=== PATIENT | male | born 1990 | race Caucasian/White ===

== ENCOUNTER 2017-03-21 08:53 | Inpatient (IN) | payer OTHER ==
[2017-03-21 09:28] VITALS: BMI 25.8
--- NOTE | 2017-03-21 09:32 | PDOC ---
History of Present Illness - General History Source: Patient Exam Limitations: No Limitations - History of Present Illness Initial Comments: 03/21/17 13:44 The patient is a 26 year old male, with a significant past medical history of , depression, anxiety, ADHD, opiate addiction, heroin abuse who presents to the emergency department with Percocet overdose. Patient reports taking 20 tablets of 325 mg of Percocet 4 hours ago and subsequently took 20 more tablets of 325 mg of Percocet 1 hour prior to presentation. Patient also reports taking Klonopin and crack overnight, and the last use of percocet 1 hr ago. Upon presentation, patient is resting comfortably and states he took these medications to get high and not to hurt himself. He has no intentions of SI/HI. Patient denies any pain. He denies chest pain, headache or dizziness. He denies fever, chills, abdominal pain, nausea, vomit, diarrhea or constipation. He denies dysuria, frequency, urgency or hematuria. Allergies: NKA Past surgical history: None Social history: narcotics,herion, coccaine PCP: Dr. Sandro Ruano <Batool Do - Last Filed: 03/21/17 15:57> - General History Source: Patient Exam Limitations: No Limitations <Arlene,Yeyo - Last Filed: 03/21/17 15:59> - General Chief Complaint: Overdose Stated Complaint: RX REFILL Past History <Batool Do - Last Filed: 03/21/17 15:57> - Past Medical History Anemia: No Asthma: No Cancer: No Cardiac Disorders: No CVA: No COPD: No CHF: No Dementia: No Diabetes: No Dialysis: No GI Disorders: No Disorders: No HTN: No Hypercholesterolemia: No Kidney Stones: No Liver Disease: No Psychiatric Problems: Yes (depression, anxiety, ADHD) Seizures: No Thyroid Disease: No Other medical history: iv drug abuse, narcotics abuse - Surgical History Abdominal Surgery: No Appendectomy: No Cardiac Surgery: No Cholecystectomy: No Lung Surgery: No Neurologic Surgery: No Orthopedic Surgery: No - Reproductive History Testicular Surgery: No - Immunization History Td Vaccination: (unknown) Immunization Up to Date: Yes - Suicide/Smoking/Psychosocial Hx Smoking Status: Yes Smoking History: Current every day smoker Years of Tobacco Use: 5 Have you smoked in the past 12 months: Yes Number of Cigarettes Smoked Daily: 5 If you are a former smoker, when did you quit?: 5 days Cigars Per Day: 0 Information on smoking cessation initiated: Yes 'Breaking Loose' booklet given: 03/21/17 Hx Alcohol Use: No Drug/Substance Use Hx: Yes (narcotics,herion, coccaine) Substance Use Type: Cocaine, Heroin, Opiates Hx Substance Use Treatment: No <Yeyo Jacobs - Last Filed: 03/21/17 15:59> - Past Medical History Allergies/Adverse Reactions: Allergies Allergy/AdvReac Type Severity Reaction Status Date / Time No Known Allergies Allergy Verified 03/21/17 09:22 Home Medications: Ambulatory Orders Clonazepam [Klonopin] 1 mg PO BID 10/18/15 Buprenorphine HCl/Naloxone HCl [Suboxone 8 mg-2 mg Sl Tablets] 1 each SL BID Review of Systems - Review of Systems Able to Perform ROS?: Yes Comments:: 03/21/17 13:44 CONSTITUTIONAL: No reported: Fever, Chills, Diaphoresis, Generalized Weakness, Malaise, Loss of Appetite HEENT: No reported: Rhinorrhea, Nasal Congestion, Throat Pain, Throat Swelling, Difficulty Swallowing, Mouth Swelling, Ear Pain, Eye Pain, Visual Changes CARDIOVASCULAR: No reported: Chest Pain, Syncope, Palpitations, Irregular Heart Rate, Lightheadedness, Peripheral Edema RESPIRATORY: No reported: Cough, Shortness of Breath, SOB with Exertion, Orthopnea, Wheezing , Stridor, Hemoptysis GASTROINTESTINAL: No reported: Abdominal pain, Abdominal Distension, Nausea, Vomiting, Diarrhea, Constipation, Melena, Hematochezia GENITOURINARY: No reported: Dysuria, Frequency, Urgency, Hesitancy, Flank Pain, Genital Pain MUSCULOSKELETAL: No reported: Myalgia, Arthralgia, Joint Swelling, Back pain, Neck Pain SKIN: No reported: Rash, Itching, Pallor HEMEATOLOGIC/IMMUNOLOGIC: No reported: Easy Bleeding, Easy Bruising, Lymphadenopathy, Frequent infections ENDOCRINE: No reported: Unexplained Weight Gain, Unexplained Weight Loss, Heat Intolerance , Cold Intolerance NEUROLOGIC: No reported: Headache, Focal Weakness, Paresthesias, Vertigo, Lightheadedness, Unsteady Gait, Seizure, Mental Status Changes, Incontinence PSYCHIATRIC: No reported: Anxiety, Depression <Batool Do - Last Filed: 03/21/17 15:57> *Physical Exam - Vital Signs Last Vital Signs Temp Pulse Resp BP Pulse Ox 98.2 F 88 18 137/87 100 03/21/17 09:22 03/21/17 09:22 03/21/17 09:22 03/21/17 09:22 03/21/17 09:40 - Physical Exam Comments: 03/21/17 13:44 GENERAL: The patient is awake, alert, and fully oriented, Nontoxic - in no acute distress. HEAD: Normocephalic, atraumatic. EYES: extraocular movements intact, sclera anicteric, conjunctiva clear, pupils 3mm and symmetric ENT: Normal voice, Moist mucous membranes. NECK: Normal range of motion, supple LUNGS: Breath sounds equal, clear to auscultation bilaterally. No wheezes, no rhonchi, no rales. HEART: Regular rate and rhythm, without murmur, rub or gallop. ABDOMEN: Soft, nontender, normoactive bowel sounds. No guarding, no rebound.No CVA tenderness EXTREMITIES: Normal range of motion, no edema. No clubbing or cyanosis. No cords , erythema, or tenderness. NEUROLOGICAL: No facial assymetry, Normal speech, PSYCH: Normal mood, normal affect. SKIN: Warm, Dry, normal turgor, <Batool Do - Last Filed: 03/21/17 15:57> - Vital Signs Last Vital Signs Temp Pulse Resp BP Pulse Ox 98.2 F 88 18 137/87 100 03/21/17 09:22 03/21/17 09:22 03/21/17 09:22 03/21/17 09:22 03/21/17 09:22 <Yeyo Jacobs - Last Filed: 03/21/17 15:59> Heart Score/ECG Review - ECG Impressions Comment:: 03/21/17 13:08 Twelve-lead EKG was performed and reviewed by me. There is normal sinus rhythm with a normal rate. rate of 72 The axis is normal. The intervals are normal. There is normal R wave progression There are no ST or T wave abnormalities. Impression: Normal twelve-lead EKG <Yeyo Jacobs - Last Filed: 03/21/17 15:59> ED Treatment Course - LABORATORY CBC & Chemistry Diagram: 03/21/17 09:50 03/21/17 09:50 - ADDITIONAL ORDERS Additional order review: Laboratory Results 03/21/17 03/21/17 03/21/17 11:20 11:20 10:20 Sodium Potassium Chloride Carbon Dioxide Anion Gap BUN Creatinine Creat Clearance w eGFR Random Glucose Calcium Total Bilirubin AST ALT Alkaline Phosphatase Total Protein Albumin Urine Color Lt. yellow Urine Appearance Clear Urine pH 6.5 D Ur Specific Shell 1.020 Urine Protein Negative Urine Glucose (UA) Negative Urine Ketones Negative Urine Blood Negative Urine Nitrite Negative Urine Bilirubin Negative Urine Urobilinogen 0.2 Salicylates Opiates Screen Positive Methadone Screen Negative Acetaminophen Barbiturate Screen Negative Phencyclidine Screen Negative Ur Amphetamines Screen Negative MDMA (Ecstasy) Screen Negative Benzodiazepines Screen Negative Cocaine Screen Positive U Marijuana (THC) Screen Negative Alcohol, Quantitative < 5.0 03/21/17 03/21/17 09:50 09:50 Sodium 141 Potassium 3.5 Chloride 106 Carbon Dioxide 30 Anion Gap 5 L BUN 17 Creatinine 1.0 Creat Clearance w eGFR > 60 Random Glucose 96 D Calcium 8.7 Total Bilirubin 0.2 D AST 8 L D ALT 17 D Alkaline Phosphatase 60 D Total Protein 7.2 Albumin 4.2 Urine Color Urine Appearance Urine pH Ur Specific Shell Urine Protein Urine Glucose (UA) Urine Ketones Urine Blood Urine Nitrite Urine Bilirubin Urine Urobilinogen Salicylates < 4.0 Opiates Screen Methadone Screen Acetaminophen 39.447 H* Barbiturate Screen Phencyclidine Screen Ur Amphetamines Screen MDMA (Ecstasy) Screen Benzodiazepines Screen Cocaine Screen U Marijuana (THC) Screen Alcohol, Quantitative 03/21/17 09:50 RBC 5.14 MCV 81.5 MCHC 33.5 RDW 14.5 MPV 9.4 Neutrophils % 72.7 Lymphocytes % 17.9 Monocytes % 8.5 Eosinophils % 0.6 D Basophils % 0.3 - Medications Given in the ED: ED Medications Discontinued Medications Generic Name Dose Route Start Last Admin Trade Name Freq PRN Reason Stop Dose Admin Acetylcysteine 12,200 mg 03/21/17 09:53 03/21/17 11:15 Acetadote 20 Injection Use Only* - 150 mg/kg (78818 mg) 03/21/17 09:54 12, 200 mg IVPB Administration ONCE ONE Charcoal/Sorbitol 25 gm 03/21/17 09:40 03/21/17 09:56 Actidose/Sorbitol - PO 03/21/17 09:41 25 gm ONCE STA Administration Charcoal/Sorbitol 25 gm 03/21/17 09:45 03/21/17 09:56 Actidose/Sorbitol - PO 03/21/17 09:46 25 gm ONCE ONE Administration Sodium Chloride 1,000 mls @ 1,000 mls/hr 03/21/17 09:34 03/21/17 09:56 Normal Saline - IV 03/21/17 10:33 1,000 mls/hr .Q1H ONE Administration <Batool Do - Last Filed: 03/21/17 15:57> - LABORATORY CBC & Chemistry Diagram: 03/21/17 09:50 03/21/17 09:50 <Yeyo Jacobs - Last Filed: 03/21/17 15:59> Medical Decision Making - Medical Decision Making 03/21/17 12:15 Dr. Mart paged via phone answering service. Dr. Delatorre director correctional agency. Awaiting call back. 03/21/17 13:[address] Seals office. Awaiting call back. 03/21/17 14:[address] Seals office. Awaiting call back. 03/21/17 14:[address] Seals office. Awaiting call back. 03/21/17 15:57 Dr. Plascencia returned the page and the patients case was discussed. <HiBatool - Last Filed: 03/21/17 15:57> - Medical Decision Making 03/21/17 10:19 26y M hx of heroin abuse presents with possible tylenol overdose - pt states heusually snorts heroin, but came into a large quantity of percocet 10s and took 20 approx 4 hrs prior to presentation and another 20x 1 hr prior to presentation. pt denies any complaints - he was told by his friend that tylenol could be dangerous and he googled and found it was dangerous so came into for evaluation. he denies any abd pain, n/v currently. staets he also used a klonapin and some crack overnight. denies any SI cocnern for tylenol OD - dose is approx 13g will give 50mg of charcole will start n-acetylcystieine supportive mangaement labs, lfts, ekg tylenol level will notify poisons once tyelenol level is back 03/21/17 12:17 pts tylenol level is ~40 - high, but non toxic according to nomogram - however, due to potential ingestion (1/2 was only 1hr prior to presentatio) - will continue to monitor tylenol level LFTs wnl will admit to ICU for further management dw dr. scott - agree with admission to ICU CRITICAL CARE DOCUMENTATION: I spent ~35 minutes of Critical Care time, excluding separately billable procedures, involving high complexity decision making to assess, manipulate and support vital system function(s) to treat single or multiple vital organ system failure and/or to prevent further life threatening deterioration of the patient' s condition. 03/21/17 15:[address] plascencia agreed with admission <Yeyo Jacobs - Last Filed: 03/21/17 15:59> *DC/Admit/Observation/Transfer - Attestations Scribe Attestion: 03/21/17 12:15 Documentation prepared by Batool Do, acting as medical records supervisor for Yeyo Jacobs MD <Batool Do - Last Filed: 03/21/17 15:57> - Discharge Dispostion Admit: Yes <Yeyo Jacobs - Last Filed: 03/21/17 15:59> Diagnosis at time of Disposition: Acetaminophen overdose Qualifiers: Encounter type: initial encounter Injury intent: accidental or unintentional Qualified Code(s): T39.1X1A - Poisoning by 4-Aminophenol derivatives, accidental (unintentional), initial encounter - Discharge Dispostion Condition at time of disposition: Guarded
[2017-03-21] MEDS ORDERED: SODIUM CHLORIDE 1,000 ML IV ONE (09:34)
[2017-03-21] MEDS ORDERED: CHARCOAL/SORBITOL SOLUTION 25 GM/120 ML BTL PO STA (09:40)
[2017-03-21] MEDS ORDERED: CHARCOAL/SORBITOL SOLUTION 25 GM/120 ML BTL PO ONE (09:45)
[2017-03-21] MEDS ORDERED: ACETYLCYSTEINE 20% 200MG/ML 30ML VIAL *FOR INJECTION USE ONLY IVPB ONE ×3 (09:53→16:39)
[2017-03-21 10:15] LABS: BASOPHIL 0.3 % (0-2.0); EOSINOPHIL 0.6 % (0-4.5); MCH 27.3 pg (25.7-33.7); MCHC 33.5 g/dl (32.0-35.9); MEAN CELL VOLUME 81.5 fl (80-96); MEAN PLT VOLUME 9.4 fl (7.5-11.1); NEUTROPHILS 72.7 % (42.8-82.8); PLATELET COUNT 237 K/MM3 (134-434); RDW 14.5 % (11.9-15.9); WHITE BLOOD COUNT 12.5 K/mm3 (4.0-10.0)
[2017-03-21 10:35] LABS: ALBUMIN 4.2 g/dl (3.4-5.0); ANION GAP 5 (8-16); BILIRUBIN,TOTAL 0.2 mg/dL (0.2-1.0); CALCIUM 8.7 mg/dL (8.5-10.1); CO2 30 mmol/L (21-32); GLUCOSE,RANDOM 96 mg/dL (74-106); SGOT/AST 8 U/L (15-37); SGPT/ALT 17 U/L (12-78); TOT PROT 7.2 g/dl (6.4-8.2)
[2017-03-21 10:36] LABS: ALK PHOS 60 U/L (45-117)
[2017-03-21 10:57] LABS: SALICYLATE < 4.0 mg/dl (0.0-30.0)
[2017-03-21 11:43] LABS: URINE MARIJUANA THC NEGATIVE ng/ml (CUTOFF=50)
--- NOTE | 2017-03-21 11:48 | EKG ---
Test Reason : Blood Pressure : / mmHG Vent. Rate : 072 BPM Atrial Rate : 072 BPM P-R Int : 144 ms QRS Dur : 096 ms QT Int : 416 ms P-R-T Axes : 076 075 048 degrees QTc Int : 455 ms NORMAL SINUS RHYTHM NORMAL ECG WHEN COMPARED WITH ECG OF 12-OCT-2015 17:38, NO SIGNIFICANT CHANGE WAS FOUND Confirmed by JUSTYNA LUTZ MD ([id number]) on 03/21/2017 11:48:19 AM Referred By: Confirmed By:JUSTYNA LUTZ MD
[2017-03-21 11:49] LABS: PH,URINE 6.5 (5.0-8.0); URINE APPEARANCE CLEAR; URINE BILIRUBIN NEGATIVE (NEGATIVE); URINE BLOOD NEGATIVE (NEGATIVE); URINE COLOR LT. YELLOW; URINE GLUCOSE (UA) NEGATIVE (NEGATIVE); URINE KETONE NEGATIVE (NEGATIVE); URINE NITRITE NEGATIVE (NEGATIVE); URINE PROTEIN NEGATIVE (NEGATIVE); URINE UROBILINOGEN 0.2 mg/dL (0.2-1.0)
[2017-03-21] MEDS ORDERED: ONDANSETRON 4 MG/2 ML VIAL IVPB ONE (12:51)
[2017-03-21 14:46] LABS: ALBUMIN 3.5 g/dl (3.4-5.0); BILIRUBIN,DIRECT < 0.2 mg/dL (0.0-0.2); SGOT/AST 7 U/L (15-37); SGPT/ALT 22 U/L (12-78)
[2017-03-21 14:48] LABS: ALK PHOS 53 U/L (45-117); BILIRUBIN,TOTAL 0.4 mg/dL (0.2-1.0); TOT PROT 6.4 g/dl (6.4-8.2)
[2017-03-21 17:16] LABS: URINE LEUK ESTERASE Negative (NEGATIVE)
--- NOTE | 2017-03-21 21:42 | HP ---
Admitting History and Physical - Admission History of Present Illness: Pt is a 26 y/o male, with PMH significant for substance abuse(heroin/cocaine/ crack) depression, anxiety and ADHD, Pt was on methadone about 6 months ago and than starting using heroin again. However pt subsequently has been on suboxone and took a dose 1 day prior to coming to the ER. Pt was out doing crack and then came across percocets. Patient reports taking 20 tablets of 325 mg of Percocet 4 hours ago and subsequently took 20 more tablets of 325 mg of Percocet 1 hour prior to presentation. Pt denies any suicidal ideation and used the drugs for recreational purposes only. - Past Medical History Psych: Yes: Addictions, Anxiety, Depression, Other (ADHD) - Smoking History Smoking history: Current every day smoker Have you smoked in the past 12 months: Yes Aproximately how many cigarettes per day: 5 If you are a former smoker, when did you quit?: 5 days - Alcohol/Substance Use Hx Alcohol Use: No Home Medications - Allergies Allergies/Adverse Reactions: Allergies Allergy/AdvReac Type Severity Reaction Status Date / Time No Known Allergies Allergy Verified 03/21/17 09:22 - Home Medications Home Medications: Ambulatory Orders Clonazepam [Klonopin] 1 mg PO BID 10/18/15 Buprenorphine HCl/Naloxone HCl [Suboxone 8 mg-2 mg Sl Tablets] 1 each SL BID Family Disease History - Family Disease History Family History: Unremarkable Family Disease History: Diabetes: Grandparent, Heart Disease: Father (HTN, ANXIETY AND DEPRESSION), CA: Grandparent, Other: Father, Mother (ANXIETY AND DEPRESSION) Review of Systems - Review of Systems Constitutional: reports: No Symptoms Eyes: reports: No Symptoms HENT: reports: No Symptoms Neck: reports: No Symptoms Cardiovascular: reports: No Symptoms Respiratory: reports: No Symptoms Gastrointestinal: reports: No Symptoms Physical Examination Vital Signs: Vital Signs Temperature 98.0 F 03/21/17 18:56 Pulse Rate 79 03/21/17 18:56 Respiratory Rate 20 03/21/17 18:56 Blood Pressure 123/77 03/21/17 18:56 O2 Sat by Pulse Oximetry (%) 99 03/21/17 20:49 Constitutional: Yes: Anxious HENT: Yes: WNL Neck: Yes: WNL, Supple Cardiovascular: Yes: WNL, Regular Rate and Rhythm Respiratory: Yes: WNL, Regular, CTA Bilaterally Gastrointestinal: Yes: WNL, Normal Bowel Sounds, Soft Musculoskeletal: Yes: WNL Extremities: Yes: WNL Edema: No Neurological: Yes: WNL, Alert, Oriented ...Motor Strength: WNL Labs: CBC, BMP 03/21/17 09:50 03/21/17 09:50 Problem List - Problems (1) Drug overdose Assessment/Plan: Monitor acetomenophen levels Cont IVF Long d/w pt about dangers of substance abuse including Detox consult Code(s): T50.901A - POISONING BY UNSP DRUG/MEDS/BIOL SUBST, ACCIDENTAL, INIT
[2017-03-21] MEDS ORDERED: clonazePAM 0.5 MG TABLET PO ONE (23:54)
[2017-03-21] MEDS ORDERED: clonazePAM 0.5 MG TABLET ONE (23:58)
[2017-03-22] MEDS ORDERED: cloNIDine HCL 0.1 MG TABLET PO ONE (02:46)
[2017-03-22] MEDS ORDERED: cloNIDine HCL 0.1 MG TABLET ONE (02:49)
[2017-03-22] MEDS ORDERED: ONDANSETRON 4 MG/2 ML VIAL IVPUSH PRN (12:16)
[2017-03-22] MEDS: DEXTROSE 5%-0.45% SALINE 1,000 ML IV SCH (13:16)
[2017-03-22 14:06] LABS: ALBUMIN 4.1 g/dl (3.4-5.0); ANION GAP 6 (8-16); CALCIUM 9.8 mg/dL (8.5-10.1); CO2 30 mmol/L (21-32); GLUCOSE,RANDOM 90 mg/dL (74-106)
[2017-03-22 14:09] LABS: ALK PHOS 54 U/L (45-117); BILIRUBIN,TOTAL 0.5 mg/dL (0.2-1.0); CREATININE 0.7 mg/dL (0.7-1.3); SGPT/ALT 13 U/L (12-78); TOT PROT 6.9 g/dl (6.4-8.2)
[2017-03-22 14:13] LABS: SGOT/AST < 3 U/L (15-37)
[2017-03-22] MEDS ORDERED: FLU VACCINE QUAD 60 MCG/0.5 ML (MDV 17-18) IM ONE ×2 (15:18→17:30)
--- NOTE | 2017-03-22 20:44 | CONSULT ---
"Consult Detox [facility] Reason for Current Admission/Consult: polysubstance use and percocet overuse resulting in tylenol poisoning Referred by:: Roselyn Hayes MD - History History of Present Illness: 26 y/o male, with PMHx opioid use disorder was on the [facility] but left, tried MAT with suboxone but unsuccessful, also reports crack coaine use and depression, anxiety and ADHD. starting using heroin again when he came across percocets and reports taking 20 tablets of 325 mg of Percocet and subsequently took 20 more tablets of 325 mg of Percocet 1 hour prior to presentation in ED yesterday. Pt denies any suicidal ideation and used the drugs for recreational purposes only. Admitted for observation, given clonazepam yesterday for sleep and anxiety but now reorts opioid withdrwal sx with anxiety, fatigue and depression. body aches, nasal congestion. Search Terms: Miguel Marrero, 1990 Search Date: 03/22/2017 08:52:57 PM The Drug Utilization Report below displays all of the controlled substance prescriptions, if any, that your patient has filled in the last twelve months. The information displayed on this report is compiled from pharmacy submissions to the Department, and accurately reflects the information as submitted by the pharmacies. This report was requested by: Doron Horner | Reference #: [id number] Others' Prescriptions Patient Name: Miguel Marrero Date: 1990 Address: [address] [place] [address] Sex: Male Rx Written Rx Dispensed Drug Quantity Days Supply Prescriber Name 03/09/2017 03/14/2017 zubsolv 5.7-1.4 mg tablet sl 60 30 Tone, Jovanny 03/09/2017 03/14/2017 zolpidem tartrate 5 mg tablet 15 25 Tone Jovanny 02/09/2017 02/28/2017 clonazepam 1 mg tablet 60 30 Tone Jovanny 02/09/2017 02/14/2017 zubsolv 5.7-1.4 mg tablet sl 30 30 Tone Jovanny 02/09/2017 02/10/2017 zolpidem tartrate 5 mg tablet 15 25 Jovanny [facility] 01/12/2017 01/30/2017 buprenorphine-naloxone 8-2 mg sl tablet 60 30 Tone [facility] 01/12/2017 01/30/2017 clonazepam 1 mg tablet 60 30 Tone, [facility] 01/12/2017 01/12/2017 zolpidem tartrate 5 mg tablet 15 25 Tone, [facility] 12/29/2016 12/31/2016 clonazepam 1 mg tablet 60 30 Tone, [facility] 12/29/2016 12/30/2016 dextroamp-amphet er 30 mg cap 30 30 Tone, [facility] 12/29/2016 12/29/2016 buprenorphine-naloxone 8-2 mg sl tablet 60 30 Tone, [facility] 11/26/2016 12/01/2016 clonazepam 1 mg tablet 60 30 Tone, [facility] 11/26/2016 11/26/2016 dextroamp-amphet er 30 mg cap 30 30 Tone, [facility] 11/26/2016 11/26/2016 dextroamp-amphet er 20 mg cap 30 30 Tone, [facility] 10/27/2016 11/01/2016 clonazepam 1 mg tablet 60 30 Tone, [facility] 10/27/2016 10/28/2016 dextroamp-amphet er 30 mg cap 30 30 Tone, [facility] 09/27/2016 10/02/2016 clonazepam 1 mg tablet 60 30 Tone, [facility] 09/27/2016 09/27/2016 dextroamp-amphet er 30 mg cap 30 30 Tone, [facility] 08/25/2016 09/04/2016 clonazepam 1 mg tablet 60 30 Tone, [facility] 07/28/2016 08/08/2016 clonazepam 1 mg tablet 60 30 Tone, [facility] 07/28/2016 07/30/2016 dextroamp-amphetamin 20 mg tab 60 30 Tone, [facility] 07/01/2016 07/11/2016 clonazepam 1 mg tablet 60 30 Tone, [facility] 07/01/2016 07/02/2016 dextroamp-amphetamin 20 mg tab 60 30 Tone, [facility] 06/03/2016 06/13/2016 clonazepam 1 mg tablet 60 30 Tone, [facility] 06/03/2016 06/03/2016 dextroamp-amphetamin 20 mg tab 60 30 Tone, [facility] 05/12/2016 05/14/2016 clonazepam 1 mg tablet 60 30 Tone, [facility] 04/14/2016 05/03/2016 dextroamp-amphetamin 20 mg tab 60 30 Tone, [facility] 03/24/2016 04/11/2016 clonazepam 1 mg tablet 60 30 J[facility] 03/24/2016 04/04/2016 dextroamp-amphetamin 20 mg tab 60 30 [facility] - History Source History Provided By: Patient, Medical Record, Caregiver Limitations to Obtaining History: No Limitations - Alcohol/Substance Use Hx Alcohol Use: No - Current Drug/Alcohol Use Heroin Route: Inhalation Frequency: 3-6 times per week Amount used: various, bryanna use any opioids Benzodiazepine (Klonopin) Route: Oral Frequency: Daily Amount used: clonazepam 1,mg bid prescribed Date of Last Use: 03/22/17 COWS - Scale Resting Pulse: 0= DC 80 or Below Sweatin= No chills or Flushing (mild withdrawal) Restless Observation: 0= Sits Still Pupil Size: 0= Normal to Room Light Bone or Joint Aches: 1= Mild Discomfort Runny Nose/ Eye Tearin= Nasal Congestion GI Upset > 30mins: 2= Nausea/Diarrhea Tremor Observation: 0= None Yawning Observation: 0= None Anxiety or Irritability: 1=Feels Anxious/Irritable Goose Flesh Skin: 0=Smooth Skin COWS Score: 5 Assessment Plan - Diagnosis (1) Opioid dependence with withdrawal Status: Acute (2) History of crack cocaine use Status: Acute (3) Acetaminophen overdose Status: Acute Qualifiers: Encounter type: initial encounter Injury intent: accidental or unintentional Qualified Code(s): T39.1X1A - Poisoning by 4-Aminophenol derivatives, accidental (unintentional), initial encounter (4) ADHD (attention deficit hyperactivity disorder) Status: Acute - Plan Plan: 25 y o m w opioid use disorder not currently in treatment actively using heorin , percocet, and cocaine with a prescription for clonazepam zadmitted with tyleno poisoning for observation and treatment after ingesting over 40 pills. medically stable with some wsign of opioid withrawl. can be discharged to f/u [facility] - requesting medication assisted treatment, does not want suboxone as it was not effective. can have methadone 10mg x1 dose now, clonazeapam bid while hospitalized and if he stays methadone 5mg tomorw x1 dose. He can leave without completing deto if he goes directly to [facility] in AM and follow sup with pcp for medical concerns. recommended d/c clonazepam as prescribed . Methadone can not be prescribed for the treatment of opioid use idsorder/addiction - only for pain and he must attend a MMTP or inpatient program to be treted for opioid dependence/addiction. Jung Horner MD [phone] - Medication Detox Regimen/Protocol: Methadone"
[2017-03-22] MEDS ORDERED: clonazePAM 0.5 MG TABLET PO SCH (20:47)
--- NOTE | 2017-03-22 21:55 | PN ---
Progress Note, Physician History of Present Illness: Pt sleeping and states that he feels fatigued - Current Medication List Current Medications: Active Medications Clonazepam (Klonopin -) 1 mg PO HS [facility] Last Admin: 03/22/17 21:28 Dose: 1 mg Dextrose/Sodium Chloride (D5-1/2ns -) 1,000 mls @ 75 mls/hr IV ASDIR CHAUNCEY Last Admin: 03/22/17 13:16 Dose: 75 mls/hr Ondansetron HCl (Zofran Injection) 4 mg IVPUSH Q8H PRN PRN Reason: NAUSEA - Objective Vital Signs: Vital Signs Temperature 99.3 F 03/22/17 18:00 Pulse Rate 56 L 03/22/17 18:00 Respiratory Rate 20 03/22/17 18:00 Blood Pressure 115/52 03/22/17 18:00 O2 Sat by Pulse Oximetry (%) 99 03/22/17 17:12 Constitutional: Yes: No Distress HENT: Yes: WNL Neck: Yes: WNL, Supple Cardiovascular: Yes: WNL, Regular Rate and Rhythm Respiratory: Yes: WNL, Regular, CTA Bilaterally Gastrointestinal: Yes: WNL, Normal Bowel Sounds, Soft Extremities: Yes: WNL Edema: No Labs: CBC, BMP 03/21/17 09:50 03/22/17 13:00 Problem List - Problems (1) Drug overdose Assessment/Plan: Follow up labs are WNL Cont IVF Will await consult for his addictions DC planning for am Code(s): T50.901A - POISONING BY UNSP DRUG/MEDS/BIOL SUBST, ACCIDENTAL, INIT
[2017-03-23] MEDS: DEXTROSE 5%-0.45% SALINE 1,000 ML IV SCH (04:13)
[2017-03-23] MEDS ORDERED: clonazePAM 0.5 MG TABLET PO ONE (08:15)
[2017-03-23] MEDS ORDERED: METHADONE HCL 10 MG TABLET PO ONE (08:15)
[2017-03-23] MEDS ORDERED: ZOLPIDEM TARTRATE 5 MG TABLET PO PRN (08:16)
[2017-03-23 08:57] LABS: ALBUMIN 3.8 g/dl (3.4-5.0); ANION GAP 6 (8-16); BILIRUBIN,TOTAL 0.5 mg/dL (0.2-1.0); CALCIUM 9.2 mg/dL (8.5-10.1); CO2 28 mmol/L (21-32); CREATININE 0.7 mg/dL (0.7-1.3); GLUCOSE,RANDOM 97 mg/dL (74-106); SGPT/ALT 16 U/L (12-78); TOT PROT 6.6 g/dl (6.4-8.2)
[2017-03-23 08:58] LABS: ALK PHOS 53 U/L (45-117)
[2017-03-23 09:01] LABS: SGOT/AST 4 U/L (15-37)
[2017-03-23 11:05] VITALS: BP 151/84; PULSE 85; TEMP 98.8
[2017-03-24] MEDS ORDERED: METHADONE HCL 10 MG TABLET PO SCH (06:00)
== END 2017-03-23 13:49 | disposition home or self-care (01) | DRG 812 ==
LOC: JER 08:53 → JERBED 13:11 → J5S 03-22 16:19
PROVIDERS: ADMIT Internal Medicine; ATTEND Internal Medicine
PROC: HZ2ZZZZ Detoxification Services for Substance Abuse Treatment (ICD-10-PCS; principal; 2017-03-22)
PROC: HZ81ZZZ Medication Management for Substance Abuse Treatment, Methadone Maintenance (ICD-10-PCS; 2017-03-22)
DX: T39.1X1A Poisoning by 4-Aminophenol derivatives, accidental (unintentional), initial encounter (principal); Y92.038 Other place in apartment as the place of occurrence of the external cause; F11.23 Opioid dependence with withdrawal; F14.10 Cocaine abuse, uncomplicated; F13.10 Sedative, hypnotic or anxiolytic abuse, uncomplicated; F90.9 Attention-deficit hyperactivity disorder, unspecified type; F17.210 Nicotine dependence, cigarettes, uncomplicated; F41.8 Other specified anxiety disorders
CPT/HCPCS: 36415; 80053; 80076; 80307; 81003; 85025; 90688; 93005; 93010; 99285-25

== ENCOUNTER 2019-07-29 11:06 | Emergency (ER) | payer OTHER ==
[2019-07-29 11:18] VITALS: BP 120/86; PULSE 84; TEMP 98.1
== END 2019-07-29 11:53 | disposition home or self-care (01) ==
LOC: JER 11:06
DX: J20.9 Acute bronchitis, unspecified (principal); R05 Cough
CPT/HCPCS: 71045-TC-FY; 99284-25; U0002